=== PATIENT | female | born 1995 | race Caucasian/White ===

== ENCOUNTER 2018-07-31 14:05 | Emergency (ER) | payer BC ==
[2018-07-31] MEDS ORDERED: ONDANSETRON HCL INJ/PF 4 MG/2 ML SDV IV ONE (14:38)
[2018-07-31] MEDS ORDERED: MORPHINE SULFATE 10 MG/ML INJ IV ONE (14:40)
--- NOTE | 2018-07-31 14:40 | ER Document Report ---
ED Medical Screen (RME) - General Chief Complaint: Nausea/Vomiting Stated Complaint: VOMITTING Time Seen by Provider: 07/31/18 14:37 Mode of Arrival: Wheelchair Information source: Patient Notes: 23-year-old female presented to ED, for complaint of nausea vomiting too many times to count since 6:00 this morning she said at least 30 if not more. She has left flank and abdominal pain. She states she had a bowel movement this morning. She states she is on Symbicort for her asthma and Synthroid for her hypothyroidism. Otherwise she does not take any kind of medications. Patient is alert oriented respirations regular and unlabored with severe left flank and abdomen pain. I have greeted and performed a rapid initial assessment of this patient. A comprehensive ED assessment and evaluation of the patient, analysis of test results and completion of medical decision making process will be conducted by an additional ED providers. TRAVEL OUTSIDE OF THE [place] IN LAST 30 DAYS: No - Related Data Allergies/Adverse Reactions: ceftriaxone sodium [From Rocephin] Allergy (Severe, Verified 07/31/18 14:06) phenobarbital [Phenobarbital] Allergy (Severe, Verified 07/31/18 14:06) amoxicillin trihydrate [From Augmentin] Allergy (Verified 07/31/18 14:06) Potassium Clavulanate * [From Augmentin] Allergy (Verified 07/31/18 14:06) Past Medical History - Social History Frequency of alcohol use: None Drug Abuse: None Pulmonary Medical History: Reports: Hx Asthma Renal/ Medical History: Denies: Hx Peritoneal Dialysis Physical Exam - Vital signs Vitals: Temp Pulse Resp BP Pulse Ox 97.8 F 99 24 H 128/88 H 100 07/31/18 14:10 07/31/18 14:10 07/31/18 14:10 07/31/18 14:10 07/31/18 14:10 Course - Vital Signs Vital signs: Temp Pulse Resp BP Pulse Ox 97.8 F 99 24 H 128/88 H 100 07/31/18 14:10 07/31/18 14:10 07/31/18 14:10 07/31/18 14:10 07/31/18 14:10
[2018-07-31] MEDS: NORMAL SALINE 1000 ML 1,000 ML IV PRN ×2 (14:52→16:37)
[2018-07-31 15:09] LABS: ABSOLUTE LYMPHOCYTES (AUTO) 1.2 10^3/uL (0.5-4.7); ABSOLUTE MONOCYTES (AUTO) 0.5 10^3/uL (0.1-1.4); ABSOLUTE NEUT (AUTO) 15.4 10^3/uL (1.7-8.2); BASOPHILS % (AUTO) 0.2 % (0-2); HEMATOCRIT 46.6 % (36.0-47.0); HEMOGLOBIN 15.8 g/dL (12.0-15.5); LYMPHOCYTES % (AUTO) 6.9 % (13-45); MEAN CORPUSCULAR HEMOGLOBIN 29.2 pg (27.0-33.4); MEAN CORPUSCULAR HGB CONC 33.9 g/dL (32.0-36.0); MEAN CORPUSCULAR VOLUME 86 fl (80-97); PLATELET COUNT 316 10^3/uL (150-450); RED BLOOD COUNT 5.42 10^6/uL (3.72-5.28); RED CELL DISTRIBUTION WIDTH 13.7 % (11.5-14.0); SEGMENTED NEUTROPHILS % (AUTO) 89.9 % (42-78); TOTAL CELLS COUNTED % (AUTO) 100 %; WHITE BLOOD COUNT 17.1 10^3/uL (4.0-10.5)
[2018-07-31] MEDS ORDERED: DIPHENHYDRAMINE HCL 50 MG/ML VIAL IV ONE (15:20)
[2018-07-31] MEDS ORDERED: METOCLOPRAMIDE HCL INJ/PF 10 MG/2 ML SDV IV ONE (15:20)
[2018-07-31 15:23] LABS: ALANINE AMINOTRANSFERASE 35 U/L (9-52); ALBUMIN 4.6 g/dL (3.5-5.0); ALKALINE PHOSPHATASE 82 U/L (38-126); ANION GAP 12 (5-19); ASPARTATE AMINO TRANSFERASE 20 U/L (14-36); BILIRUBIN,DIRECT 0.3 mg/dL (0.0-0.4); BILIRUBIN,TOTAL 0.7 mg/dL (0.2-1.3); BLOOD UREA NITROGEN 10 mg/dL (7-20); CALCIUM 10.1 mg/dL (8.4-10.2); CARBON DIOXIDE 22 mmol/L (22-30); CHLORIDE 105 mmol/L (98-107); GLUCOSE 143 mg/dL (75-110); LIPASE 66.8 U/L (23-300); POTASSIUM 4.4 mmol/L (3.6-5.0); SODIUM 139.1 mmol/L (137-145); TOTAL PROTEIN 8.1 g/dL (6.3-8.2)
[2018-07-31] MEDS ORDERED: PROMETHAZINE HCL INJ 25 MG/1 ML VIAL IM ONE (16:27)
[2018-07-31 16:54] LABS: AMORPHOUS SEDIMENT,URINE TRACE /HPF; APPEARANCE,URINE SLIGHTLY-CLOUDY; BILIRUBIN,URINE NEGATIVE (NEGATIVE); COLOR,URINE YELLOW; GLUCOSE, URINE NEGATIVE (NEGATIVE); KETONES,URINE 80 mg/dL (NEGATIVE); LEUKOCYTE ESTERASE,URINE NEGATIVE (NEGATIVE); NITRITE,URINE NEGATIVE (NEGATIVE); PROTEIN,URINE NEGATIVE (NEGATIVE); URINE SPECIFIC GRAVITY 1.023; UROBILINOGEN,URINE NEGATIVE mg/dL (<2.0)
--- NOTE | 2018-07-31 17:55 | ER Document Report ---
ED General - General Chief Complaint: Nausea/Vomiting Stated Complaint: VOMITTING Time Seen by Provider: 07/31/18 14:37 Primary Care Provider: MAGDA MAXWELL MD [Primary Care Provider] - Follow up as needed Mode of Arrival: Wheelchair TRAVEL OUTSIDE OF THE [place] IN LAST 30 DAYS: No - HPI Patient complains to provider of: Nausea vomiting Notes: Patient coming in for nausea vomiting seen by a provider in triage note is prov ided below 23-year-old female presented to ED, for complaint of nausea vomiting too many times to count since 6:00 this morning she said at least 30 if not more. She has left flank and abdominal pain. She states she had a bowel movement this morning. She states she is on Symbicort for her asthma and Synthroid for her hypothyroidism. Otherwise she does not take any kind of medications. Patient is alert oriented respirations regular and unlabored with severe left flank and abdomen pain. Patient immune for evaluation nausea vomiting upon my evaluation patient is dry heaving rocking back and forth in the bed. Patient states no new foods no new new pets no recent antibiotics. Patient denies any abdominal past medical history. Patient denies any abdominal surgeries in the past. Patient states normal bowel movements morning no diarrhea denies any sick contacts. Patient otherwise looks to be in no obvious distress - Related Data Allergies/Adverse Reactions: ceftriaxone sodium [From Rocephin] Allergy (Severe, Verified 07/31/18 14:06) phenobarbital [Phenobarbital] Allergy (Severe, Verified 07/31/18 14:06) amoxicillin trihydrate [From Augmentin] Allergy (Verified 07/31/18 14:06) Potassium Clavulanate * [From Augmentin] Allergy (Verified 07/31/18 14:06) Past Medical History - General Information source: Patient - Social History Smoking Status: Never Smoker Frequency of alcohol use: None Drug Abuse: None Family History: Reviewed & Not Pertinent Patient has suicidal ideation: No Patient has homicidal ideation: No Pulmonary Medical History: Reports: Hx Asthma Renal/ Medical History: Denies: Hx Peritoneal Dialysis Review of Systems - Review of Systems Constitutional: No symptoms reported EENT: No symptoms reported Cardiovascular: No symptoms reported Respiratory: No symptoms reported Gastrointestinal: Nausea, Vomiting Genitourinary: No symptoms reported Female Genitourinary: No symptoms reported Musculoskeletal: No symptoms reported Skin: No symptoms reported Hematologic/Lymphatic: No symptoms reported Neurological/Psychological: No symptoms reported -: Yes All other systems reviewed and negative Physical Exam - Vital signs Vitals: Temp Pulse Resp BP Pulse Ox 97.8 F 99 24 H 128/88 H 100 07/31/18 14:10 07/31/18 14:10 07/31/18 14:10 07/31/18 14:10 07/31/18 14:10 Interpretation: Normal - General General appearance: Appears well, Alert - HEENT Head: Normocephalic, Atraumatic Eyes: Normal Pupils: PERRL - Respiratory Respiratory status: No respiratory distress Chest status: Nontender Breath sounds: Normal Chest palpation: Normal - Cardiovascular Rhythm: Regular Heart sounds: Normal auscultation Murmur: No - Abdominal Inspection: Morbidly Obese Distension: No distension Bowel sounds: Normal Tenderness: Nontender Organomegaly: No organomegaly - Back Back: Normal, Nontender - Extremities General upper extremity: Normal inspection, Nontender, Normal color, Normal ROM, Normal temperature General lower extremity: Normal inspection, Nontender, Normal color, Normal ROM, Normal temperature, Normal weight bearing. No: Abdirashid's sign - Neurological Neuro grossly intact: Yes Cognition: Normal Orientation: AAOx4 Maddie Coma Scale Eye Opening: Spontaneous Maddie Coma Scale Verbal: Oriented [place] Coma Scale Motor: Obeys Commands [place] Coma Scale Total: 15 Speech: Normal Motor strength normal: LUE, RUE, LLE, RLE Sensory: Normal - Psychological Associated symptoms: Normal affect, Normal mood - Skin Skin Temperature: Warm Skin Moisture: Dry Skin Color: Normal Course - Re-evaluation Re-evalutation: 07/31/18 17:56 Patient coming in for nausea vomiting patient is morbidly obese. Laboratory studies shows leukocytosis more likely demargination from the patient vomiting. Abdominal examination showed nontender no surgical pathology no guarding or rebound. Patient urinalysis does not show any critical pathology no signs of hematuria or infection. Urinalysis does show some signs of dehydration but slight ketosis. Patient was given 2 bags of IV fluids. Patient still feeling slightly nauseous after Zofran and Reglan and Benadryl and Phenergan however patient otherwise has not had any vomiting while here. Patient will be di scharged home with Zofran and Phenergan. - Vital Signs Vital signs: Temp Pulse Resp BP Pulse Ox 97.8 F 99 24 H 128/88 H 100 07/31/18 14:10 07/31/18 14:10 07/31/18 14:10 07/31/18 14:10 07/31/18 14:10 - Laboratory Result Diagrams: 07/31/18 14:50 07/31/18 14:50 Laboratory results interpreted by me: 07/31/18 07/31/18 07/31/18 14:50 14:50 16:23 WBC 17.1 H RBC 5.42 H Hgb 15.8 H Seg Neutrophils % 89.9 H Lymphocytes % 6.9 L Absolute Neutrophils 15.4 H Glucose 143 H Urine Ketones 80 H Urine Ascorbic Acid 20 H Discharge - Discharge Clinical Impression: Nausea & vomiting Qualifiers: Vomiting type: unspecified Vomiting Intractability: unspecified Qualified Code(s): R11.2 - Nausea with vomiting, unspecified Condition: Good Disposition: HOME, SELF-CARE Instructions: Nausea or Vomiting, Nonspecific ([facility]), Dehydration ([facility]) Additional Instructions: Laboratory studies do not show any critical pathology for your nausea or vomiting. More likely a viral illness. Yousymptoms are likely due to a virus. However, it is important that you continue to monitor for any concerning symptoms including inability to tolerate oral fluids, less than 2 urinations in a 24 hour period, and lethargy Please continue to offer oral solutions such as Pedialyte Gatorade. It is okay if you do not want to eat over the next several days but it is important that they continue to drink fluids. You may also provide a medication such as ibuprofen (Motrin) or acetaminophen (Tylenol) per box instructions for fever. Prescriptions: Ondansetron [Zofran Odt 4 mg Tablet] 1 - 2 tab PO Q4H PRN #30 tab.rapdis PRN Reason: For Nausea/Vomiting Promethazine HCl [Phenergan 25 mg Tablet] 25 mg PO Q6 #30 tablet Forms: Return to Work Referrals: MAGDA MAXWELL MD [Primary Care Provider] - Follow up as needed
[2018-07-31 18:24] VITALS: BP 120/86
== END 2018-07-31 18:22 | disposition home or self-care (01) ==
LOC: ER 14:05
DX: R11.2 Nausea with vomiting, unspecified (principal); R10.9 Unspecified abdominal pain; E66.01 Morbid (severe) obesity due to excess calories; J45.909 Unspecified asthma, uncomplicated; D72.829 Elevated white blood cell count, unspecified; Z79.51 Long term (current) use of inhaled steroids; E03.9 Hypothyroidism, unspecified; Z79.899 Other long term (current) drug therapy; Z88.0 Allergy status to penicillin; Z88.1 Allergy status to other antibiotic agents; Z88.8 Allergy status to other drugs, medicaments and biological substances
CPT/HCPCS: 99284; 96372; 96361; 96374; 96375; 36415; 87040; 83690; 84703; 85025; 80053; 81001; J1200; J2765; J2270; J2550; J2405; J7030

== ENCOUNTER 2018-11-22 09:36 | Emergency (ER) | payer BC ==
[2018-11-22] MEDS ORDERED: ONDANSETRON HCL INJ/PF 4 MG/2 ML SDV IV ONE ×3 (10:15→13:13)
[2018-11-22 10:19] LABS: ABSOLUTE BASOPHILS # (AUTO) 0.1 10^3/uL (0.0-0.2); ABSOLUTE EOSINOPHILS # (AUTO) 0.3 10^3/uL (0.0-0.6); ABSOLUTE LYMPHOCYTES (AUTO) 2.5 10^3/uL (0.5-4.7); ABSOLUTE MONOCYTES (AUTO) 0.7 10^3/uL (0.1-1.4); ABSOLUTE NEUT (AUTO) 9.4 10^3/uL (1.7-8.2); BASOPHILS % (AUTO) 0.7 % (0-2); HEMATOCRIT 48.1 % (36.0-47.0); LYMPHOCYTES % (AUTO) 19.6 % (13-45); MEAN CORPUSCULAR HEMOGLOBIN 28.6 pg (27.0-33.4); MEAN CORPUSCULAR HGB CONC 33.4 g/dL (32.0-36.0); MEAN CORPUSCULAR VOLUME 86 fl (80-97); MONOCYTES % (AUTO) 5.1 % (3-13); PLATELET COUNT 307 10^3/uL (150-450); RED BLOOD COUNT 5.61 10^6/uL (3.72-5.28); RED CELL DISTRIBUTION WIDTH 13.6 % (11.5-14.0); SEGMENTED NEUTROPHILS % (AUTO) 72.6 % (42-78); TOTAL CELLS COUNTED % (AUTO) 100 %; WHITE BLOOD COUNT 12.9 10^3/uL (4.0-10.5)
[2018-11-22] MEDS ORDERED: KETOROLAC TROMETHAMINE INJ/PF 30 MG/1 ML SDV IV ONE (10:33)
[2018-11-22 10:37] LABS: ALBUMIN 4.5 g/dL (3.5-5.0); ALKALINE PHOSPHATASE 82 U/L (38-126); ANION GAP 11 (5-19); ASPARTATE AMINO TRANSFERASE 22 U/L (14-36); BILIRUBIN,DIRECT 0.3 mg/dL (0.0-0.4); BILIRUBIN,TOTAL 0.7 mg/dL (0.2-1.3); BLOOD UREA NITROGEN 7 mg/dL (7-20); CARBON DIOXIDE 22 mmol/L (22-30); CHLORIDE 107 mmol/L (98-107); GLUCOSE 128 mg/dL (75-110); POTASSIUM 4.1 mmol/L (3.6-5.0); TOTAL PROTEIN 7.6 g/dL (6.3-8.2)
--- NOTE | 2018-11-22 10:39 | ER Document Report ---
ED GI/ - General Chief Complaint: Vomiting Stated Complaint: VOMITING, RIGHT SIDE PAIN Time Seen by Provider: 11/22/18 10:32 Primary Care Provider: MAGDA MAXWELL MD [Primary Care Provider] - Follow up as needed Notes: Patient is complaining of severe pain in the mid epigastric region of her stomach that started yesterday. She has had nausea since yesterday and is vomited over 20 times. Pain is located almost exclusively in the epigastric region. No back pain. Has not noted any fever. Denies any UTI symptoms. No diarrhea. Patient has not had any abdominal surgeries. Last. Is "a while" because the patient is on the Mirena implant for control. Patient has had similar pains in presentations like this several times in the past and has been seen by a doctor occasionally who told her that she had "stomach flu". TRAVEL OUTSIDE OF THE [place] IN LAST 30 DAYS: No - Related Data Allergies/Adverse Reactions: ceftriaxone sodium [From Rocephin] Allergy (Severe, Verified 07/31/18 14:06) phenobarbital [Phenobarbital] Allergy (Severe, Verified 07/31/18 14:06) amoxicillin trihydrate [From Augmentin] Allergy (Verified 07/31/18 14:06) Potassium Clavulanate * [From Augmentin] Allergy (Verified 07/31/18 14:06) Past Medical History - Social History Smoking Status: Unknown if Ever Smoked Family History: Reviewed & Not Pertinent Pulmonary Medical History: Reports: Hx Asthma Endocrine Medical History: Reports: Hx Hypothyroidism Review of Systems - Review of Systems Notes: REVIEW OF SYSTEMS: CONSTITUTIONAL : Denies fever. EENT: Denies eye, ear, nose or mouth or throat pain or other symptoms. CARDIOVASCULAR: Denies chest pain. RESPIRATORY: Denies cough, chest congestion, or shortness of breath. GASTROINTESTINAL: See HPI. GENITOURINARY: Denies difficulty or painful urinating, urinary frequency, blood in urine. MUSCULOSKELETAL: Denies back or neck pain. Denies joint pain or swelling. SKIN: Denies rash or skin lesions. NEUROLOGICAL: Denies LOC or altered mental status. Denies headache. Denies sensory loss or motor deficits. ALL OTHER SYSTEMS REVIEWED AND NEGATIVE. Physical Exam - Vital signs Vitals: Temp Pulse Resp BP Pulse Ox 97.1 F 91 24 H 121/83 96 11/22/18 09:42 11/22/18 09:42 11/22/18 09:42 11/22/18 09:42 11/22/18 09:42 Interpretation: Normal Notes: PHYSICAL EXAMINATION: GENERAL: Patient appears to be in moderate distress, rolling around on the stretcher. HEAD: Atraumatic, normocephalic. EYES: Pupils equal round and reactive to light, extraocular movements intact. ENT: oropharynx clear without exudates. Moist mucous membranes. NECK: Normal range of motion, supple. LUNGS: Breath sounds clear and equal bilaterally. HEART: Regular rate and rhythm without murmurs. ABDOMEN: See HPI. BACK: No tenderness throughout entire back. EXTREMITIES: Normal range of motion without pain. NEUROLOGICAL: Normal speech, normal gait. Normal sensory, motor, and reflex exams. Awake, alert, and oriented x3. Cranial nerves normal. PSYCH: Normal mood, normal affect. SKIN: Warm, dry, no rashes. Course - Re-evaluation Re-evalutation: 11/22/18 11:03 Patient says her pain is gone, but still nauseated. We will give some Reglan IV. 11/22/18 15:40 Patient is finally gotten better. She says she does not have any nausea or vomiting or pain at this time. She is had several doses of Zofran along with Toradol followed by Dilaudid IV for pain. Patient says she feels up to going home now. We will send her home with a prescription for Zofran as well as a prescription for a few (6) Dilaudid. I did asked the patient if she smokes marijuana and she says that she does. I described to her the cyclical hyperemesis that has recently started to be ident ified with marijuana smoking and suggested she may want to reconsider smoking pot. - Vital Signs Vital signs: Temp Pulse Resp BP Pulse Ox 98.3 F 74 16 114/71 100 11/22/18 13:20 11/22/18 13:20 11/22/18 15:06 11/22/18 13:20 11/22/18 13:20 - Laboratory Result Diagrams: 11/22/18 10:10 11/22/18 10:10 Laboratory results interpreted by me: 11/22/18 11/22/18 11/22/18 10:10 10:10 13:08 WBC 12.9 H RBC 5.61 H Hgb 16.0 H Hct 48.1 H Absolute Neutrophils 9.4 H Glucose 128 H Urine Protein 100 H Urine Ketones 80 H Discharge - Discharge Clinical Impression: Vomiting, Abdominal pain Condition: Stable Disposition: HOME, SELF-CARE Additional Instructions: VOMITING: Vomiting (or nausea without vomiting) can be caused by many other different problems. It can mean that something's wrong with the stomach, such as ulcers or inflammation or the intestinal tract, such as appendicitis. But it can also be a symptom of a problem that has nothing to do with the stomach or intestines. Vomiting is common with severe headaches, earaches, tonsillitis, and kidney infections, etc. We see it with pneumonia or heart attacks. Drugs can cause nausea and vomiting. Many abdominal problems cause vomiting; for example, gallstones, kidney stones, pancreatitis, and intestinal obstruction (blocked bowels). In most cases, curing the vomiting depends on fixing the problem that cause d it. For temporary relief, we may use an anti-nausea medicine. For home use, we can prescribe suppositories, chewable pills, pills that dissolve in the mouth, or liquid anti-nausea drugs. If the vomiting seems to be caused by a problem in the stomach, acid-suppressing drugs may be prescribed as well. It's important to avoid dehydration. Sip small amounts of clear liquids (soft drinks, tea, broth, etc) . Try to take fluids frequently even if you are vomiting to prevent dehydration. Take increasing amounts of fluid and when liquids are being consumed successfully, advance to small amounts of bland food (toast, soups, mashed potatoes, etc.) until you are able to resume a regular diet. Avoid aspirin, tobacco, and alcohol. If the vomiting worsens, if the problem that's making you vomit worsens, or if there's evidence of bleeding in the stomach (such as black, tarry stool, or bloody or black vomit), you should return immediately. Also, return if abdominal pain worsens or becomes localized to one area or you develop high fever. Call your doctor if you aren't improved in 24 hours. VIRAL SYNDROME: The physician has diagnosed a viral infection. Viruses not only cause "co lds," but can cause many different symptoms including generalized aching, fever, headache, cough, diarrhea, nausea, vomiting, and fatigue. The treatment, for the most part, is simply relief of symptoms. This means that antibiotics are usually not given. Rest, fluids, pain medications and, occasionally, medication for the specific symptoms that are most bothersome will be prescribed. Use good handwashing to avoid passing the virus to others. Shared toys should be cleaned with disinfectant. Clean the toilets, sinks, and counter surfaces in bathrooms. Launder clothing in hot water. Contact the physician if you develop any new or unusual symptoms such as severe headache, stiff neck, high fever, chest pain, productive cough, or shortness of breath. You should be rechecked if you don't see marked improvement within seven to 10 days. INTRAVENOUS (I V) FLUIDS: As part of your care today, you received intravenous (IV) fluids. IV fluids are administered to patients who are dehydrated or to those who have certain chemical (electrolyte) abnormalities that need correcting. ANTINAUSEA MEDICATION: You have been given a medication to suppress nausea and vomiting. This type of medication can be given as a shot, pill, or suppository. It will usually last for many hours. Pills and shots usually last six to eight hours. For the typical illness, only one or two doses of the medication may be necessary. Mild lightheadedness may occur. This type of medicine can cause drowsiness. Do not drive or operate dangerous machinery while under its influence. Do not mix with alcohol. See your doctor at once if you have muscle spasms or tightness, or uncontrollable motions (particularly of the neck, mouth, or jaw). Persistent vomiting or severe lightheadedness should also be evaluated by the physician. REGLAN (METOCLOPRAMIDE): Reglan has been prescribed. This medicine affects the stomach and intestines. It can be used to treat nausea and vomiting, to prevent reflux of stomach acid up into the esophagus, or to increase the contractions of the stomach and intestines. It is often prescribed for esophagitis, and for paralysis of the stomach in diabetics. Reglan can cause either mild restlessness or drowsiness. You should contact the doctor at once if you become extremely restless, anxious, or cannot sleep, or if you develop uncontrollable motions of the lips, tongue, or jaw. Do not take alcohol with this medicine. Do not drive or operate machinery until you have been taking this medicine long enough to know how it affects you. Call the doctor if you develop abdominal pains, lightheadedness, black stool, or blood in the stool or vomitus. Oral Narcotic Medication You have been given a prescription for pain control. This medication is a narcotic. It's best taken with food, as nausea can result if taken on an empty stomach. Don't operate machinery or drive within six hours of taking this medicat ion. Do not combine this medicine with alcohol, or with any medication which can cause sedation (such as cold tablets or sleeping pills) unless you get permission from the physician. Narcotics tend to cause constipation. If possible, drink plenty of fluids and eat a diet high in fiber and fruits. FOLLOW-UP CARE: If you have been referred to a physician for follow-up care, call the physicians office for an appointment as you were instructed or within the next two days. If you experience worsening or a significant change in your symptoms, notify the physician immediately or return to the Emergency Department at any time for re-evaluation. A type of vomiting called cyclical vomiting or cyclical hyperemesis has been identified that is associated with people smoking marijuana. He might want to check it out and reconsider smoking pot in the future. Prescriptions: Hydromorphone HCl [Dilaudid 2 mg Tablet] 2 mg PO Q4HP PRN #6 tablet PRN Reason: Ondansetron [Zofran Odt 4 mg Tablet] 1 - 2 tab PO Q4H PRN #10 tab.rapdis PRN Reason: For Nausea/Vomiting Forms: Return to Work Referrals: MAGDA MAXWELL MD [Primary Care Provider] - Follow up as needed
[2018-11-22] MEDS ORDERED: METOCLOPRAMIDE HCL INJ/PF 10 MG/2 ML SDV IV ONE (11:01)
[2018-11-22] MEDS: NORMAL SALINE 1000 ML 1,000 ML IV PRN ×2 (11:42→13:15)
--- NOTE | 2018-11-22 12:29 | RADIOLOGY REPORT (SQ) ---
EXAM DESCRIPTION: U/S ABDOMEN LIMITED W/O DOP COMPLETED DATE/TIME: 11/22/2018 12:17 pm REASON FOR STUDY: RUQ and mid epigastric pain, vomit. r/o GB COMPARISON: None. TECHNIQUE: Dynamic and static grayscale images acquired of the abdomen and recorded on PACS. Additio nal selected color Doppler and spectral images recorded. LIMITATIONS: None. FINDINGS: PANCREAS: No masses. Visualized pancreatic duct normal caliber. LIVER: No masses. Echotexture normal. LIVER VASCULATURE: Normal directional flow of the main portal vein and hepatic veins. GALLBLADDER: No stones. Normal wall thickness. No pericholecystic fluid. ULTRASOUND-DETECTED GALVAN'S SIGN: Negative. INTRAHEPATIC DUCTS AND COMMON DUCT: CBD and intrahepatic ducts normal caliber. No filling defects. INFERIOR VENA CAVA: Normal flow. AORTA: No aneurysm identified. RIGHT KIDNEY: Normal size. Normal echogenicity. No solid or suspicious masses. No hydronephros is. No calcifications. PERITONEAL AND RIGHT PLEURAL SPACE: No ascites or effusions. OTHER: No other significant findings. IMPRESSION: NO ACUTE FINDINGS. TECHNICAL DOCUMENTATION: JOB ID: [id number] [place]-72 2010 [employer]- All Rights Reserved Reading location - IP/workstation name: [employer] (formerly [employer])
[2018-11-22] MEDS ORDERED: HYDROMORPHONE HCL INJ/PF 2 MG/ML AMPULE IV ONE (13:11)
[2018-11-22 13:27] LABS: APPEARANCE,URINE CLOUDY; BILIRUBIN,URINE NEGATIVE (NEGATIVE); COLOR,URINE AMBER; GLUCOSE, URINE NEGATIVE (NEGATIVE); KETONES,URINE 80 mg/dL (NEGATIVE); LEUKOCYTE ESTERASE,URINE NEGATIVE (NEGATIVE); NITRITE,URINE NEGATIVE (NEGATIVE); PROTEIN,URINE 100 mg/dL (NEGATIVE); URINE SPECIFIC GRAVITY 1.026; UROBILINOGEN,URINE NEGATIVE mg/dL (<2.0)
--- NOTE | 2018-11-22 14:10 | RADIOLOGY REPORT (SQ) ---
EXAM DESCRIPTION: CT ABD/PELVIS WITH IV ONLY COMPLETED DATE/TIME: 11/22/2018 1:58 pm REASON FOR STUDY: Epigastric abdominal pain, negative ultrasound gb COMPARISON: None. TECHNIQUE: CT scan of the abdomen and pelvis performed using helical scanning technique with dynamic intravenous contrast injection. No oral contrast. Images reviewed with lung, soft tissue, and bone windows. Reconstructed coronal and sagittal MPR images reviewed. Delayed images for evaluation of the urinary system also acquired. All images stored on PACS. All CT scanners at this facility use dose modulation, iterative reconstruction, and/or weight based d osing when appropriate to reduce radiation dose to as low as reasonably achievable (ALARA). [facility]: Dose Right [facility]: CareDose [facility]: Dose Right [facility]: Teradose 4D [facility]: [employer] CONTRAST TYPE AND DOSE: contrast/concentration: Isovue 350.00 mg/ml; Total Contrast Delivered: 100.0 ml; Total Saline Delivered: 72.0 ml RENAL FUNCTION: None required. The patient is less than 50 years old. RADIATION DOSE: CT Rad equipment meets quality standard of care and radiation dose reduction techniq ues were employed. CTDIvol: 20.8 - 21.1 mGy. DLP: 2386 mGy-cm.. LIMITATIONS: None. FINDINGS: LOWER CHEST: No significant findings. No nodules or infiltrates. LIVER: Normal size. No masses. No dilated ducts. SPLEEN: Normal size. No focal lesions. PANCREAS: No masses. No significant calcifications. No adjacent inflammation or peripancreatic fluid collections. Pancreatic duct not dilated. GALLBLADDER: No identified stones by CT criteria. No inflammatory changes to suggest cholecystitis. ADRENAL GLANDS: No significant masses or asymmetry. RIGHT KIDNEY AND URETER: No solid masses. No significant calcifications. No hydronephrosis or hyd roureter. LEFT KIDNEY AND URETER: No solid masses. No significant calcifications. No hydronephrosis or hydr oureter. AORTA AND VESSELS: No aneurysm. No dissection. Renal arteries, SMA, celiac without stenosis. RETROPERITONEUM: No retroperitoneal adenopathy, hemorrhage or masses. BOWEL AND PERITONEAL CAVITY: No masses or inflammatory changes. No free fluid or peritoneal masses. APPENDIX: Normal. PELVIS: 3 cm right ovarian cysts. IUD in place. Bladder unremarkable. ABDOMINAL WALL: No masses. No hernias. BONES: No significant or acute findings. OTHER: No other significant finding. IMPRESSION: NO SIGNIFICANT OR ACUTE FINDING IN THE ABDOMEN OR PELVIS ON CT SCAN WITH IV CONTRAST. 3 cm right ovarian cysts. COMMENT: Followup of asymptomatic adnexal cysts found on CT or MRI in reproductive age patients *Benign cyst ?5 cm: No followup needed *Note: If cyst is clinically symptomatic or otherwise concerning, other followup may be necessary. Darvin sed on Managing Incidental Findings on Abdominal and Pelvic CT and MRI, Part 1: White Paper of the AC R Incidental Findings Committee II on Adnexal Findings J Am Sabine Radiol 2013;10:675-681. TECHNICAL DOCUMENTATION: JOB ID: [id number] Quality ID # [id number]: Final reports with documentation of one or more dose reduction techniques (e.g., Au tomated exposure control, adjustment of the mA and/or kV according to patient size, use of iterative reconstruction technique) 2010 [employer]- All Rights Reserved Reading location - IP/workstation name: [email or web address]
[2018-11-22 16:09] VITALS: BP 100/57
== END 2018-11-22 16:17 | disposition home or self-care (01) ==
LOC: ER 09:36
DX: R11.2 Nausea with vomiting, unspecified (principal); R10.13 Epigastric pain; J45.909 Unspecified asthma, uncomplicated; Z97.5 Presence of (intrauterine) contraceptive device; Z88.1 Allergy status to other antibiotic agents; Z88.8 Allergy status to other drugs, medicaments and biological substances; Z88.0 Allergy status to penicillin
CPT/HCPCS: 96376; 99284; 96361; 96374; 96375; 36415; 83690; 84703; 85025; 80053; 81001; 76705; 74177; J1885; J2765; J1170; J2405; J7030

== ENCOUNTER 2018-11-28 12:46 | Emergency (ER) | payer BC ==
[2018-11-28 12:53] VITALS: BP 141/93
[2018-11-28] MEDS ORDERED: ONDANSETRON HCL INJ/PF 4 MG/2 ML SDV IV ONE (12:57)
[2018-11-28] MEDS ORDERED: NORMAL SALINE 1000 ML 1,000 ML IV ONE (12:58)
--- NOTE | 2018-11-28 12:59 | ER Document Report ---
ED Medical Screen (RME) - General Chief Complaint: Abdominal Pain Stated Complaint: VOMITING Time Seen by Provider: 11/28/18 12:53 Primary Care Provider: MAGDA MAXWELL MD [Primary Care Provider] - Follow up as needed Mode of Arrival: Ambulatory Information source: Patient Notes: Patient is an otherwise healthy 23-year-old female presents emergency department chief complaint of left upper quadrant abdominal pain and vomiting. Patient reports these symptoms started last night and have persisted through the night. She denies any fevers or diarrhea. She does report that this has been going on intermittently over the last month. She states she has been seen in this emergency room as well as another emergency department and has never had a formal diagnosis. She does report smoking marijuana but states she only smokes it a few times a week. Exam: Patient actively vomiting in triage. Tenderness to palpation the left upper quadrant. I have greeted and performed a rapid initial assessment of this patient. A comprehensive ED assessment and evaluation of the patient, analysis of test results and completion of the medical decision making process will be conducted by additional ED providers. I have specifically instructed the patient or family members with the patient to immediately return to any nursing staff should anything change in the patient's condition or with their chief complaint. This medical record was dictated with voice recognizing software. There may be grammatical, syntax errors that are unintended. TRAVEL OUTSIDE OF THE [place] IN LAST 30 DAYS: No - Related Data Allergies/Adverse Reactions: ceftriaxone sodium [From Rocephin] Allergy (Severe, Verified 11/28/18 12:46) phenobarbital [Phenobarbital] Allergy (Severe, Verified 11/28/18 12:46) amoxicillin trihydrate [From Augmentin] Allergy (Verified 11/28/18 12:46) Potassium Clavulanate * [From Augmentin] Allergy (Verified 11/28/18 12:46) Past Medical History - Social History Frequency of alcohol use: None Drug Abuse: Marijuana Pulmonary Medical History: Reports: Hx Asthma Endocrine Medical History: Reports: Hx Hypothyroidism Renal/ Medical History: Denies: Hx Peritoneal Dialysis Physical Exam - Vital signs Vitals: Temp Pulse Resp BP Pulse Ox 98.3 F 86 20 141/93 H 100 11/28/18 12:52 11/28/18 12:52 11/28/18 12:52 11/28/18 12:52 11/28/18 12:52 Course - Vital Signs Vital signs: Temp Pulse Resp BP Pulse Ox 98.3 F 86 20 141/93 H 100 11/28/18 12:52 11/28/18 12:52 11/28/18 12:52 11/28/18 12:52 11/28/18 12:52 Doctor's Discharge - Discharge Referrals: MAGDA MAXWELL MD [Primary Care Provider] - Follow up as needed
[2018-11-28 13:33] LABS: ABSOLUTE BASOPHILS # (AUTO) 0.1 10^3/uL (0.0-0.2); ABSOLUTE LYMPHOCYTES (AUTO) 1.3 10^3/uL (0.5-4.7); ABSOLUTE MONOCYTES (AUTO) 0.4 10^3/uL (0.1-1.4); ABSOLUTE NEUT (AUTO) 11.2 10^3/uL (1.7-8.2); BASOPHILS % (AUTO) 0.4 % (0-2); EOSINOPHILS % (AUTO) 0.3 % (0-6); HEMOGLOBIN 15.7 g/dL (12.0-15.5); LYMPHOCYTES % (AUTO) 9.9 % (13-45); MEAN CORPUSCULAR HEMOGLOBIN 29.1 pg (27.0-33.4); MEAN CORPUSCULAR HGB CONC 33.4 g/dL (32.0-36.0); MEAN CORPUSCULAR VOLUME 87 fl (80-97); MONOCYTES % (AUTO) 2.8 % (3-13); PLATELET COUNT 306 10^3/uL (150-450); RED CELL DISTRIBUTION WIDTH 13.8 % (11.5-14.0); SEGMENTED NEUTROPHILS % (AUTO) 86.6 % (42-78); TOTAL CELLS COUNTED % (AUTO) 100 %; WHITE BLOOD COUNT 12.9 10^3/uL (4.0-10.5)
[2018-11-28 13:37] LABS: ALBUMIN 4.6 g/dL (3.5-5.0); ALKALINE PHOSPHATASE 75 U/L (38-126); ANION GAP 10 (5-19); ASPARTATE AMINO TRANSFERASE 37 U/L (14-36); BILIRUBIN,DIRECT 0.2 mg/dL (0.0-0.4); BILIRUBIN,TOTAL 0.4 mg/dL (0.2-1.3); BLOOD UREA NITROGEN 6 mg/dL (7-20); CALCIUM 9.7 mg/dL (8.4-10.2); CARBON DIOXIDE 26 mmol/L (22-30); CHLORIDE 104 mmol/L (98-107); GLUCOSE 119 mg/dL (75-110); POTASSIUM 4.1 mmol/L (3.6-5.0); TOTAL PROTEIN 7.6 g/dL (6.3-8.2)
[2018-11-28 14:43] LABS: APPEARANCE,URINE CLEAR; BILIRUBIN,URINE NEGATIVE (NEGATIVE); COLOR,URINE YELLOW; GLUCOSE, URINE NEGATIVE (NEGATIVE); KETONES,URINE 20 mg/dL (NEGATIVE); LEUKOCYTE ESTERASE,URINE NEGATIVE (NEGATIVE); NITRITE,URINE NEGATIVE (NEGATIVE); PROTEIN,URINE NEGATIVE (NEGATIVE); URINE SPECIFIC GRAVITY 1.017; UROBILINOGEN,URINE NEGATIVE mg/dL (<2.0)
[2018-11-28] MEDS ORDERED: HALOPERIDOL LACTATE INJ 5 MG/1 ML VIAL IV ONE ×2 (14:48→17:15)
[2018-11-28] MEDS ORDERED: METOCLOPRAMIDE HCL INJ/PF 10 MG/2 ML SDV IV ONE (15:48)
--- NOTE | 2018-11-28 20:25 | ER Document Report ---
Entered by LEDA BLAIR SCRIBE 11/28/18 1556 Acting as scribe for:LYNN GALE DO ED GI/ - General Chief Complaint: Abdominal Pain Stated Complaint: VOMITING Time Seen by Provider: 11/28/18 12:53 Primary Care Provider: MAGDA MAXWELL MD [Primary Care Provider] - Follow up in 3-5 days Mode of Arrival: Ambulatory Information source: Patient Notes: 23 year old female that presents to the emergency department today with complaints of vomiting with some associated mild abdominal cramping over the last day. Patient admits to smoking marijuana. Patient told the triage nurse that she was just discharged [facility] ED "without a diagnosis". TRAVEL OUTSIDE OF THE [place] IN LAST 30 DAYS: No - Related Data Allergies/Adverse Reactions: ceftriaxone sodium [From Rocephin] Allergy (Severe, Verified 11/28/18 12:46) phenobarbital [Phenobarbital] Allergy (Severe, Verified 11/28/18 12:46) amoxicillin trihydrate [From Augmentin] Allergy (Verified 11/28/18 12:46) Potassium Clavulanate * [From Augmentin] Allergy (Verified 11/28/18 12:46) Past Medical History - General Information source: Patient - Social History Smoking Status: Current Every Day Smoker Cigarette use (# per day): Yes Frequency of alcohol use: None Drug Abuse: Marijuana Lives with: Family Family History: Reviewed & Not Pertinent Patient has suicidal ideation: No Patient has homicidal ideation: No Pulmonary Medical History: Reports: Hx Asthma Endocrine Medical History: Reports: Hx Hypothyroidism Review of Systems - Review of Systems Constitutional: No symptoms reported EENT: No symptoms reported Cardiovascular: No symptoms reported Respiratory: No symptoms reported Gastrointestinal: See HPI, Abdominal pain, Vomiting Genitourinary: No symptoms reported Female Genitourinary: No symptoms reported Musculoskeletal: No symptoms reported Skin: No symptoms reported Hematologic/Lymphatic: No symptoms reported Neurological/Psychological: No symptoms reported -: Yes All other systems reviewed and negative Physical Exam - Vital signs Vitals: Temp Pulse Resp BP Pulse Ox 98.3 F 86 20 141/93 H 100 11/28/18 12:52 11/28/18 12:52 11/28/18 12:52 11/28/18 12:52 11/28/18 12:52 - Notes Notes: Physical Exam: General: Alert, uncomfortable. Obese. HEENT: Normocephalic. Atraumatic. PERRL. Extraocular movements intact. Oropharynx clear. Dry mucous membranes. Neck: Supple. Non-tender. Respiratory: No respiratory distress. Clear and equal breath sounds bilaterally. Cardiovascular: Regular rate and rhythm. Abdominal: Obese. Non-tender. No distension. Normal Bowel Sounds. Back: Non-tender. No deformity or step off. Extremities: Moves all four extremities. Upper extremities: Normal inspection. Normal ROM. Lower extremities: Normal inspection. No edema. Normal ROM. Neurological: Normal cognition. AAOx4. Normal speech. Psychological: Normal affect. Normal Mood. Skin: Warm. Dry. Normal color.- Course - Re-evaluation Re-evalutation: 11/28/18 17:22 Reports nausea somewhat improved, requesting more haldol. 11/28/18 20:00 Patient is taking p.o. with no further nausea or vomiting. No abdominal pain. Patient is a 23-year-old female who comes in complaining of nausea vomiting. She has been seen for this in the past. Patient with nonspecific abdominal pain. Given Zofran without relief. Haldol given with relief. Reglan given for continued nausea but patient is requesting more Haldol. 2 more milligrams of Haldol given with complete resolution of symptoms. Patient is feeling better, taking p.o. She does not admit to marijuana to me but did to the nursing staff. Patient presentation is concerning for cyclic vomiting. Blood work within normal limits. Stable for discharge. Return if any further concerns or symptoms. - Vital Signs Vital signs: Temp Pulse Resp BP Pulse Ox 98.3 F 86 20 141/93 H 100 11/28/18 12:52 11/28/18 12:52 11/28/18 12:52 11/28/18 12:52 11/28/18 12:52 - Laboratory Result Diagrams: 11/28/18 13:03 11/28/18 13:03 Laboratory results interpreted by me: 11/28/18 11/28/18 11/28/18 13:03 13:03 14:18 WBC 12.9 H RBC 5.40 H Hgb 15.7 H Seg Neutrophils % 86.6 H Lymphocytes % 9.9 L Monocytes % 2.8 L Absolute Neutrophils 11.2 H BUN 6 L Glucose 119 H AST 37 H Urine Ketones 20 H Discharge - Discharge Clinical Impression: Vomiting Qualifiers: Vomiting type: unspecified Vomiting Intractability: non-intractable Nausea presence: with nausea Qualified Code(s): R11.2 - Nausea with vomiting, unspecified Condition: Stable Disposition: HOME, SELF-CARE Instructions: Vomiting ([facility]) Prescriptions: Promethazine HCl [Phenergan 25 mg Tablet] 1 - 2 tab PO Q6H PRN #15 tablet PRN Reason: Forms: Return to Work Referrals: MAGDA MAXWELL MD [Primary Care Provider] - Follow up in 3-5 days Scribe Attestation: 11/28/18 20:25 I personally performed the services described in the documentation, reviewed and edited the documentation which was dictated to the scribe in my presence, and it accurately records my words and actions. I personally performed the services described in the documentation, reviewed and edited the documentation which was dictated to the scribe in my presence, and it accurately records my words and actions.
== END 2018-11-28 19:00 | disposition home or self-care (01) ==
LOC: ER 12:46
DX: R11.2 Nausea with vomiting, unspecified (principal); F12.10 Cannabis abuse, uncomplicated; F17.210 Nicotine dependence, cigarettes, uncomplicated; R10.9 Unspecified abdominal pain; E66.9 Obesity, unspecified; J45.909 Unspecified asthma, uncomplicated; Z88.1 Allergy status to other antibiotic agents; Z88.0 Allergy status to penicillin; Z88.8 Allergy status to other drugs, medicaments and biological substances
CPT/HCPCS: 96376; 99284; 96361; 96374; 96375; 36415; 83690; 85025; 81025; 80053; 81001; J1630; J2765; J2405; J7030

== ENCOUNTER 2018-12-08 10:59 | Day surgery (SDC) | payer BC ==
[~2018-12-08 10:59] MED LIST: LIDOCAINE 2% INJ-PF (100 MG/5 ML) SYRINGE ONE; PROPOFOL INJ 200 MG/20 ML VIAL IV ONE
--- NOTE | 2018-12-08 13:53 | Operative Report ---
Operative Report DATE OF SURGERY: 12/08/18 Operative Report: The risks benefits and alternatives of the procedure explained to the patient in detail and informed consent is obtained.A GIF Olympus video scope was inserted into the patient's mouth and hypopharynx, the esophagus is identified intubated and insufflated, the scope was then advanced through the esophagus stomach and duodenum, retroflexion maneuver is done, the esophagus stomach and first and second portions of the duodenum examined. PREOPERATIVE DIAGNOSIS: Epigastric pain rule out peptic ulcer disease POSTOPERATIVE DIAGNOSIS: Gastritis status post biopsy rule out Helicobacter pylori. Esophagitis status post biopsy rule out Kay's esophagus OPERATION: EGD with biopsy SURGEON: ABRAM LOZANO ANESTHESIA: LMAC TISSUE REMOVED OR ALTERED: As noted above. COMPLICATIONS: None. ESTIMATED BLOOD LOSS: None. INTRAOPERATIVE FINDINGS: As noted above. PROCEDURE: Patient tolerated the procedure well. No immediate postprocedure complications are noted. Patient is discharged in good condition. Discharge date 12/08/2018. Discharge diet: Regular. Discharge activity: Regular. 2 to 3-week follow-up to discuss findings. Patient is instructed to call the office or proceed to the emergency room should there be any further problems or questions. Wait on the pathology.
[2018-12-08] MEDS ORDERED: PROPOFOL INJ 200 MG/20 ML VIAL IV ONE (13:54)
[2018-12-08 14:46] VITALS: BP 103/65
== END 2018-12-08 14:50 | disposition home or self-care (01) ==
LOC: OROUT 10:59
PROVIDERS: ATTEND Internal Medicine Gastroenterology
DX: K29.50 Unspecified chronic gastritis without bleeding (principal); K20.9 Esophagitis, unspecified; E03.9 Hypothyroidism, unspecified; J45.909 Unspecified asthma, uncomplicated; Z87.891 Personal history of nicotine dependence; Z79.51 Long term (current) use of inhaled steroids; Z79.899 Other long term (current) drug therapy
CPT/HCPCS: 81025; 88305 ×2; J2704; 43239; J2001

== ENCOUNTER 2018-12-17 12:04 | Emergency (ER) | payer BC ==
[2018-12-17] MEDS ORDERED: NORMAL SALINE 1000 ML 1,000 ML IV ONE ×2 (12:19→13:41)
[2018-12-17] MEDS ORDERED: PROMETHAZINE HCL 25 MG SUPP.RECT PR ONE (12:19)
--- NOTE | 2018-12-17 12:22 | ER Document Report ---
ED Medical Screen (RME) - General Chief Complaint: Abdominal Pain Stated Complaint: ABDOMINAL PAIN Time Seen by Provider: 12/17/18 12:19 Primary Care Provider: MARGARITA BROWN MD [Primary Care Provider] - Follow up as needed Mode of Arrival: Ambulatory Information source: Patient Notes: 23-year-old female presented to ED for complaint of left upper abdominal pain. She states that she has had a CAT scan and ultrasound recently and both were negative. She states she does not know why she is having this pain she has had for months they comes and goes. She states she is been had nausea and vomiting. She states Zofran does not help her nausea and she had Compazine already today with no results. She states she needs Phenergan injection. I have ordered her some Phenergan suppository as I do not give injections this is black boxed. Patient was also ordered IV fluids. Patient is moaning and groaning in pain states that it is been going on for months. I have greeted and performed a rapid initial assessment of this patient. A comprehensive ED assessment and evaluation of the patient, analysis of test results and completion of medical decision making process will be conducted by an additional ED providers. TRAVEL OUTSIDE OF THE [place] IN LAST 30 DAYS: No - Related Data Allergies/Adverse Reactions: phenobarbital [Phenobarbital] Allergy (Severe, Verified 12/17/18 12:07) INDUCED A SEIZURE amoxicillin trihydrate [From Augmentin] Allergy (Unknown, Verified 12/17/18 12:07) ceftriaxone sodium [From Rocephin] Allergy (Unknown, Verified 12/17/18 12:07) Potassium Clavulanate * [From Augmentin] Allergy (Unknown, Verified 12/17/18 12:07) Past Medical History - Past Medical History Cardiac Medical History: Denies: Hx Coronary Artery Disease, Hx Heart Attack, Hx Hypertension Pulmonary Medical History: Reports: Hx Asthma Denies: Hx Bronchitis, Hx COPD, Hx Pneumonia Neurological Medical History: Reports: Hx Seizures - A CHILD. Denies: Hx Cerebrovascular Accident Endocrine Medical History: Reports: Hx Hypothyroidism Renal/ Medical History: Denies: Hx Peritoneal Dialysis Musculoskeltal Medical History: Denies Hx Arthritis - Immunizations Hx Diphtheria, Pertussis, Tetanus Vaccination: Yes Physical Exam - Vital signs Vitals: Temp Pulse Resp BP Pulse Ox 97.5 F 88 24 H 141/72 H 97 12/17/18 12:05 12/17/18 12:05 12/17/18 12:05 12/17/18 12:05 12/17/18 12:05 Course - Vital Signs Vital signs: Temp Pulse Resp BP Pulse Ox 97.5 F 88 24 H 141/72 H 97 12/17/18 12:05 12/17/18 12:05 12/17/18 12:05 12/17/18 12:05 12/17/18 12:05 Doctor's Discharge - Discharge Referrals: MARGARITA BROWN MD [Primary Care Provider] - Follow up as needed
[2018-12-17] MEDS ORDERED: DIPHENHYDRAMINE HCL 50 MG/ML VIAL IV ONE ×2 (12:41→16:48)
[2018-12-17] MEDS ORDERED: METOCLOPRAMIDE HCL INJ/PF 10 MG/2 ML SDV IV ONE (12:41)
[2018-12-17] MEDS ORDERED: HALOPERIDOL LACTATE INJ 5 MG/1 ML VIAL IV ONE ×3 (12:41→16:49)
--- NOTE | 2018-12-17 12:50 | ER Document Report ---
ED GI/ - General Chief Complaint: Abdominal Pain Stated Complaint: ABDOMINAL PAIN Time Seen by Provider: 12/17/18 12:19 Primary Care Provider: MARGARITA BROWN MD [Primary Care Provider] - Follow up as needed Mode of Arrival: Ambulatory Information source: Patient, [facility] Records Notes: This 23-year-old female patient comes emergency room complaining of severe abd ominal pain nausea vomiting. This is a chronic problem for this person. She is a chronic abuser of marijuana, and has been told in the past she most likely has cyclic vomiting. She tells me that Dr. Chahal told her that was not the problem, it was her gastritis based on endoscopy done 9 days ago. Review of the pathology report from that visit showed "chronic inactive gastritis". She has never tried getting in a hot shower to see if it would help her symptoms. She was seen in the emergency room 19 days ago, and her symptoms were controlled with Haldol at that time. TRAVEL OUTSIDE OF THE [place] IN LAST 30 DAYS: No - Related Data Allergies/Adverse Reactions: phenobarbital [Phenobarbital] Allergy (Severe, Verified 12/17/18 12:07) INDUCED A SEIZURE amoxicillin trihydrate [From Augmentin] Allergy (Unknown, Verified 12/17/18 12:07) ceftriaxone sodium [From Rocephin] Allergy (Unknown, Verified 12/17/18 12:07) Potassium Clavulanate * [From Augmentin] Allergy (Unknown, Verified 12/17/18 12:07) Past Medical History - General Information source: Patient, [facility] Records - Social History Smoking Status: Unknown if Ever Smoked Cigarette use (# per day): No Chew tobacco use (# tins/day): No Smoking Education Provided: No Frequency of alcohol use: None Drug Abuse: Marijuana Family History: Reviewed & Not Pertinent Patient has suicidal ideation: No Patient has homicidal ideation: No Pulmonary Medical History: Reports: Hx Asthma Neurological Medical History: Reports: Hx Seizures - A CHILD Endocrine Medical History: Reports: Hx Hypothyroidism GI Medical History: Reports: Other - Chronic abdominal pain with vomiting Past Surgical History: Reports: Other - Upper endoscopy on 12/08/2018 - Immunizations Hx Diphtheria, Pertussis, Tetanus Vaccination: Yes Review of Systems - Review of Systems Constitutional: No symptoms reported EENT: No symptoms reported Cardiovascular: No symptoms reported Respiratory: No symptoms reported Gastrointestinal: See HPI Genitourinary: No symptoms reported Female Genitourinary: No symptoms reported Musculoskeletal: No symptoms reported Skin: No symptoms reported Hematologic/Lymphatic: No symptoms reported Neurological/Psychological: No symptoms reported Physical Exam - Vital signs Vitals: Temp Pulse Resp BP Pulse Ox 97.5 F 88 24 H 141/72 H 97 12/17/18 12:05 12/17/18 12:05 12/17/18 12:05 12/17/18 12:05 12/17/18 12:05 - General General appearance: Alert, Anxious In distress: Moderate - Patient is rolling back and forth, moaning and groaning quite loudly - HEENT Head: Normocephalic, Atraumatic Eyes: Normal Pupils: PERRL - Respiratory Respiratory status: No respiratory distress Breath sounds: Normal - Cardiovascular Rhythm: Regular Heart sounds: Normal auscultation Murmur: No - Abdominal Inspection: Morbidly Obese Bowel sounds: Normal Tenderness: Tender - Back Back: Normal - Extremities General upper extremity: Normal inspection General lower extremity: Normal inspection - Neurological Neuro grossly intact: Yes - Psychological Associated symptoms: Anxious - Skin Skin Temperature: Warm Skin Moisture: Dry Skin Color: Normal Course - Vital Signs Vital signs: Temp Pulse Resp BP Pulse Ox 98.1 F 94 15 120/57 L 99 12/17/18 17:13 12/17/18 17:13 12/17/18 17:13 12/17/18 17:13 12/17/18 17:13 - Laboratory Result Diagrams: 12/17/18 12:27 12/17/18 12:27 Laboratory results interpreted by me: 12/17/18 12/17/18 12/17/18 12:27 12:27 13:55 WBC 16.4 H RBC 5.31 H Absolute Neuts (auto) 12.9 H Seg Neutrophils % 78.4 H Glucose 124 H Urine Ketones 80 H Discharge - Discharge Clinical Impression: Cannabinoid hyperemesis syndrome Cyclic vomiting syndrome Qualifiers: Vomiting Intractability: non-intractable Nausea presence: with nausea Qualified Code(s): G43.A0 - Cyclical vomiting, not intractable Condition: Stable Disposition: HOME, SELF-CARE Additional Instructions: Cannabinoid Hyperemesis Syndrome: You most likely are suffering from cannabinoid hyperemesis syndrome with cyclic vomiting. This is a phenomena that is caused by smoking marijuana. It does not necessarily occur shortly after smoke it can continue to occur up to 1 month after you stop smoking marijuana, but it rarely goes away on its own if you do not stop smoking marijuana. Some people noticed that there abdominal discomfort and nausea improve when they take a hot shower. They also frequently feel better when they rub capsaicin cream on their abdomen. Take the medications as prescribed for nausea and vomiting. Take Benadryl 25 mg every 6 hours for the next 1 to 2 days. Drink plenty of cool clear liquids. Stop smoking marijuana. Follow-up with a local medical doctor to help manage your symptoms if they do not resolve. RETURN TO THE EMERGENCY ROOM IF ANY NEW OR WORSENING SYMPTOMS. Prescriptions: Haloperidol [Haldol 2 Mg Tablet] 2 mg PO Q6 PRN #8 tablet PRN Reason: Metoclopramide HCl [Reglan 10 mg Tablet] 1 tab PO ASDIR PRN #10 tablet PRN Reason: Referrals: MARGARITA BROWN MD [Primary Care Provider] - Follow up as needed
[2018-12-17 12:55] LABS: ABSOLUTE BASOPHILS # (AUTO) 0.1 10^3/uL (0.0-0.2); ABSOLUTE EOSINOPHILS # (AUTO) 0.4 10^3/uL (0.0-0.6); ABSOLUTE LYMPHOCYTES (AUTO) 2.3 10^3/uL (0.5-4.7); ABSOLUTE MONOCYTES (AUTO) 0.7 10^3/uL (0.1-1.4); ABSOLUTE NEUT (AUTO) 12.9 10^3/uL (1.7-8.2); BASOPHILS % (AUTO) 0.7 % (0-2); EOSINOPHILS % (AUTO) 2.3 % (0-6); HEMATOCRIT 46.1 % (36.0-47.0); HEMOGLOBIN 15.2 g/dL (12.0-15.5); LYMPHOCYTES % (AUTO) 14.1 % (13-45); MEAN CORPUSCULAR HEMOGLOBIN 28.6 pg (27.0-33.4); MEAN CORPUSCULAR VOLUME 87 fl (80-97); MONOCYTES % (AUTO) 4.5 % (3-13); PLATELET COUNT 350 10^3/uL (150-450); RED BLOOD COUNT 5.31 10^6/uL (3.72-5.28); RED CELL DISTRIBUTION WIDTH 13.4 % (11.5-14.0); SEGMENTED NEUTROPHILS % (AUTO) 78.4 % (42-78); TOTAL CELLS COUNTED % (AUTO) 100 %; WHITE BLOOD COUNT 16.4 10^3/uL (4.0-10.5)
[2018-12-17 13:00] LABS: ALBUMIN 4.3 g/dL (3.5-5.0); ALKALINE PHOSPHATASE 84 U/L (38-126); ANION GAP 10 (5-19); ASPARTATE AMINO TRANSFERASE 21 U/L (14-36); BILIRUBIN,DIRECT 0.3 mg/dL (0.0-0.4); BILIRUBIN,TOTAL 0.6 mg/dL (0.2-1.3); BLOOD UREA NITROGEN 9 mg/dL (7-20); CALCIUM 10.1 mg/dL (8.4-10.2); CARBON DIOXIDE 25 mmol/L (22-30); CHLORIDE 105 mmol/L (98-107); GLUCOSE 124 mg/dL (75-110); POTASSIUM 4.4 mmol/L (3.6-5.0); TOTAL PROTEIN 7.4 g/dL (6.3-8.2)
[2018-12-17 14:16] LABS: APPEARANCE,URINE SLIGHTLY-CLOUDY; BILIRUBIN,URINE NEGATIVE (NEGATIVE); COLOR,URINE YELLOW; GLUCOSE, URINE NEGATIVE (NEGATIVE); KETONES,URINE 80 mg/dL (NEGATIVE); LEUKOCYTE ESTERASE,URINE NEGATIVE (NEGATIVE); NITRITE,URINE NEGATIVE (NEGATIVE); PROTEIN,URINE NEGATIVE (NEGATIVE); URINE SPECIFIC GRAVITY 1.021; UROBILINOGEN,URINE NEGATIVE mg/dL (<2.0)
[2018-12-17 14:29] LABS: URINE AMPHETAMINES SCREEN NEGATIVE; URINE BARBITURATES SCREEN NEGATIVE; URINE BENZODIAZEPINES SCREEN NEGATIVE; URINE COCAINE SCREEN NEGATIVE; URINE MARIJUANA (THC) SCREEN UNCONFIRMED POSITIVE; URINE METHADONE SCREEN NEGATIVE; URINE PHENCYCLIDINE SCREEN NEGATIVE
[2018-12-17] MEDS ORDERED: DEXTROSE 5%-LACTATED RINGERS 1,000 ML IV ONE (14:41)
[2018-12-17 17:10] VITALS: BP 120/57
== END 2018-12-17 17:51 | disposition home or self-care (01) ==
LOC: ER 12:04
DX: F12.188 Cannabis abuse with other cannabis-induced disorder (principal); G43.A0 Cyclical vomiting, in migraine, not intractable; R10.9 Unspecified abdominal pain; Z79.899 Other long term (current) drug therapy; J45.909 Unspecified asthma, uncomplicated
CPT/HCPCS: 96376; 99284; 96361; 96374; 96375; 36415; 83690; 84703; 85025; 80053; 81001; 80307; J1200; J1630; J2765; J3490; J7121; J7030

== ENCOUNTER 2018-12-19 08:08 | Emergency (ER) | payer BC ==
[2018-12-19] MEDS ORDERED: NORMAL SALINE 1000 ML 1,000 ML IV ONE (08:51)
[2018-12-19] MEDS ORDERED: ONDANSETRON HCL INJ/PF 4 MG/2 ML SDV IV ONE (08:51)
[2018-12-19 09:53] LABS: ABSOLUTE MONOCYTES (AUTO) 0.3 10^3/uL (0.1-1.4); ABSOLUTE NEUT (AUTO) 10.5 10^3/uL (1.7-8.2); BASOPHILS % (AUTO) 0.2 % (0-2); EOSINOPHILS % (AUTO) 0.1 % (0-6); HEMATOCRIT 45.6 % (36.0-47.0); HEMOGLOBIN 15.3 g/dL (12.0-15.5); LYMPHOCYTES % (AUTO) 8.2 % (13-45); MEAN CORPUSCULAR HEMOGLOBIN 28.8 pg (27.0-33.4); MEAN CORPUSCULAR HGB CONC 33.6 g/dL (32.0-36.0); MEAN CORPUSCULAR VOLUME 86 fl (80-97); MONOCYTES % (AUTO) 2.8 % (3-13); PLATELET COUNT 324 10^3/uL (150-450); RED CELL DISTRIBUTION WIDTH 13.5 % (11.5-14.0); SEGMENTED NEUTROPHILS % (AUTO) 88.7 % (42-78); TOTAL CELLS COUNTED % (AUTO) 100 %; WHITE BLOOD COUNT 11.9 10^3/uL (4.0-10.5)
[2018-12-19 10:00] LABS: APPEARANCE,URINE SLIGHTLY-CLOUDY; BILIRUBIN,URINE NEGATIVE (NEGATIVE); COLOR,URINE YELLOW; GLUCOSE, URINE NEGATIVE (NEGATIVE); KETONES,URINE 80 mg/dL (NEGATIVE); LEUKOCYTE ESTERASE,URINE NEGATIVE (NEGATIVE); NITRITE,URINE NEGATIVE (NEGATIVE); PROTEIN,URINE 30 mg/dL (NEGATIVE); URINE SPECIFIC GRAVITY 1.027; UROBILINOGEN,URINE NEGATIVE mg/dL (<2.0)
[2018-12-19 10:06] LABS: ALBUMIN 4.4 g/dL (3.5-5.0); ALKALINE PHOSPHATASE 76 U/L (38-126); ANION GAP 12 (5-19); ASPARTATE AMINO TRANSFERASE 21 U/L (14-36); BILIRUBIN,DIRECT 0.2 mg/dL (0.0-0.4); BILIRUBIN,TOTAL 0.4 mg/dL (0.2-1.3); BLOOD UREA NITROGEN 11 mg/dL (7-20); CALCIUM 9.6 mg/dL (8.4-10.2); CARBON DIOXIDE 25 mmol/L (22-30); CHLORIDE 102 mmol/L (98-107); GLUCOSE 120 mg/dL (75-110); POTASSIUM 3.9 mmol/L (3.6-5.0); TOTAL PROTEIN 7.5 g/dL (6.3-8.2)
[2018-12-19] MEDS ORDERED: PROMETHAZINE HCL INJ 50 MG/1 ML VIAL IM ONE (11:07)
--- NOTE | 2018-12-19 11:12 | ER Document Report ---
ED GI/ - General Chief Complaint: Nausea/Vomiting Stated Complaint: VOMITING Time Seen by Provider: 12/19/18 10:59 Primary Care Provider: MAGDA MAXWELL MD [Primary Care Provider] - Follow up as needed Notes: 23-year-old female seen here 2 days ago and diagnosed with cannabinoid hyperemesis re-presents to the emergency department for unresolved abdominal pain. Patient states that she has had continued nausea and vomiting and left upper quadrant pain. Patient states that she had an upper endoscopy performed by Dr. Bailey on 11 days ago and she was diagnosed with gastritis. Patient is on Prilosec but has been chronically. Patient states that she has had blood streaked vomit and it is brown but patient has not had an appetite. Patient denies any joseph hematemesis or denies any hematochezia or melena. Patient denies any fevers or recent illness. No urinary symptoms or abnormal vaginal discharge. TRAVEL OUTSIDE OF THE [place] IN LAST 30 DAYS: No - Related Data Allergies/Adverse Reactions: phenobarbital [Phenobarbital] Allergy (Severe, Verified 12/17/18 12:07) INDUCED A SEIZURE amoxicillin trihydrate [From Augmentin] Allergy (Unknown, Verified 12/17/18 12:07) ceftriaxone sodium [From Rocephin] Allergy (Unknown, Verified 12/17/18 12:07) Potassium Clavulanate * [From Augmentin] Allergy (Unknown, Verified 12/17/18 12:07) Past Medical History - Social History Smoking Status: Never Smoker Frequency of alcohol use: None Drug Abuse: None Family History: Reviewed & Not Pertinent Patient has suicidal ideation: No Patient has homicidal ideation: No - Past Medical History Cardiac Medical History: Denies: Hx Coronary Artery Disease, Hx Heart Attack, Hx Hypertension Pulmonary Medical History: Reports: Hx Asthma Denies: Hx Bronchitis, Hx COPD, Hx Pneumonia Neurological Medical History: Reports: Hx Seizures - A CHILD. Denies: Hx Cerebrovascular Accident Endocrine Medical History: Reports: Hx Hypothyroidism Renal/ Medical History: Denies: Hx Peritoneal Dialysis Musculoskeletal Medical History: Denies Hx Arthritis Past Surgical History: Reports: Other - Upper endoscopy on 12/08/2018 - Immunizations Hx Diphtheria, Pertussis, Tetanus Vaccination: Yes Review of Systems - Review of Systems Constitutional: See HPI EENT: No symptoms reported Cardiovascular: No symptoms reported Respiratory: No symptoms reported Gastrointestinal: See HPI Genitourinary: No symptoms reported Female Genitourinary: See HPI Musculoskeletal: No symptoms reported Skin: No symptoms reported Hematologic/Lymphatic: No symptoms reported Neurological/Psychological: No symptoms reported Physical Exam - Vital signs Vitals: Temp Pulse Resp BP Pulse Ox 97.5 F 64 20 139/84 H 97 12/19/18 08:11 12/19/18 08:11 12/19/18 08:11 12/19/18 08:11 12/19/18 08:11 - Notes Notes: PHYSICAL EXAMINATION: Reviewed vital signs and charting by RN GENERAL: Alert, interacts well. No acute distress. HEAD: Normocephalic, atraumatic. EYES: Pupils equal and round. Extraocular movements intact. ENT: Oral mucosa moist, tongue midline. NECK: Full range of motion. Trachea midline. LUNGS: Clear to auscultation bilaterally, no wheezes, rales, or rhonchi. No respiratory distress. HEART: Regular rate and rhythm. No murmur ABDOMEN: soft, mild tenderness to palpation left upper quadrant. No distention. Bowel sounds present EXTREMITIES: Moves all 4 extremities spontaneously. No edema, No cyanosis. PSYCH: Normal affect, normal mood. SKIN: Warm, dry, normal turgor. No rashes or lesions noted. Course - Re-evaluation Re-evalutation: 12/19/18 11:10 This patient is in no acute distress and nontoxic-appearing. All lab work was within normal limits and there were no derangements. Patient states that the Haldol given to her here in the emergency department 2 days ago did not help her symptoms she states that Phenergan works. I have given her Phenergan 50 mg IM once and will reassess. Based on patient's presentation, recent history with endoscope B, benign abdominal exam I do not suspect emergent condition or surg ical abdomen. I do not suspect the patient has a small bowel obstruction as her last bowel movement was yesterday morning and she is passing gas, do not suspect mesenteric ischemia. Plan to reassess after she is medicated. 12/19/18 12:06 Patient states that she did not feel any better after getting the Phenergan and stated "I have been given morphine in the past and that seems to help me, a smal l dose like 4 mg". I initially ordered Benadryl 25 mg IV but I will treat the patient's pain with a smaller dose of morphine, 2 mg IV once. Once adequate pain control is established patient will be stable for discharge as there is no emergent condition warranting surgical evaluation or medical admission. - Vital Signs Vital signs: Temp Pulse Resp BP Pulse Ox 98.8 F 92 20 136/93 H 96 12/19/18 11:47 12/19/18 11:47 12/19/18 11:47 12/19/18 11:47 12/19/18 11:47 - Laboratory Result Diagrams: 12/19/18 09:28 12/19/18 09:28 Laboratory results interpreted by me: 12/19/18 12/19/18 12/19/18 09:28 09:28 09:28 WBC 11.9 H RBC 5.30 H Lymph % (Auto) 8.2 L [place] % (Auto) 2.8 L Absolute Neuts (auto) 10.5 H Seg Neutrophils % 88.7 H Glucose 120 H Urine Protein 30 H Urine Ketones 80 H Urine Blood SMALL H Discharge - Discharge Clinical Impression: Nausea and vomiting Qualifiers: Vomiting type: unspecified Vomiting Intractability: unspecified Qualified Code(s): R11.2 - Nausea with vomiting, unspecified Abdominal pain Qualifiers: Abdominal location: left upper quadrant Qualified Code(s): R10.12 - Left upper quadrant pain Condition: Good Disposition: HOME, SELF-CARE Instructions: Vomiting ([facility]) Additional Instructions: You have been seen in the Emergency Department (ED) for abdominal pain. Your evaluation did not identify a clear cause of your symptoms but was generally reassuring. Please follow up with your doctor as soon as possible regarding today's emergent visit and the symptoms that are bothering you. Return to the ED if your abdominal pain worsens or fails to improve, you develop bloody vomiting, bloody diarrhea, you are unable to tolerate fluids due to vomiting, fever greater than 101, or other symptoms that concern you. You have also been seen in the ED today for nausea and vomiting. Your work up today has not shown a clear cause for your symptoms. You have been prescribed phenergan; please use as prescribed as needed for your nausea. Follow up with your doctor as soon as possible regarding today's emergent visit and your symptoms of nausea. Return to the Emergency Department (ED) if you develop abdominal pain, bloody vomiting, bloody diarrhea, if you are unable to tolerate fluids due to vomiting, or if you develop other symptoms that concern you. Forms: Return to Work Referrals: MAGDA MAXWELL MD [Primary Care Provider] - Follow up as needed
[2018-12-19 11:48] VITALS: BP 136/93
[2018-12-19] MEDS ORDERED: DIPHENHYDRAMINE HCL 50 MG/ML VIAL IV ONE (12:02)
[2018-12-19] MEDS ORDERED: MORPHINE SULFATE 10 MG/ML INJ IV ONE (12:06)
== END 2018-12-19 12:38 | disposition home or self-care (01) ==
LOC: ER 08:08
DX: K29.70 Gastritis, unspecified, without bleeding (principal); Z79.899 Other long term (current) drug therapy; R10.12 Left upper quadrant pain; R11.2 Nausea with vomiting, unspecified; R63.0 Anorexia; Z88.8 Allergy status to other drugs, medicaments and biological substances; Z88.0 Allergy status to penicillin; Z88.1 Allergy status to other antibiotic agents; Z98.890 Other specified postprocedural states
CPT/HCPCS: 99284; 96372; 96361; 96374; 36415; 85025; 80053; 81001; J2270; J2550; J7030

== ENCOUNTER → 2019-01-18 | Outpatient (CLI) | payer BC ==
--- NOTE | 2019-01-18 10:25 | RADIOLOGY REPORT (SQ) ---
EXAM DESCRIPTION: NM HIDA SCAN WITH CCK COMPLETED DATE/TIME: 01/18/2019 10:16 am REASON FOR STUDY: RUQ PAIN (R10.11) R10.11 RIGHT UPPER QUADRANT PAIN COMPARISON: None. RADIONUCLIDE AND DOSE: DOSAGE RADIONUCLIDE: 5.43 millicuries Tc99m Mebrofenin. DOSAGE CCK: 5 micrograms. DOSAGE MORPHINE: Not required. The route of agent administration: Intravenous TECHNIQUE: Serial imaging right upper quadrant up to 60 minutes following injection of radionuclide. CCK injected after gallbladder visualized. LIMITATIONS: None. FINDINGS: LIVER: Normal visualization without areas of photopenia. INTRAHEPATIC BILE DUCTS: Normal size and no delay in visualization. COMMON BILE DUCT: Normal without dilatation. GALLBLADDER: Normal visualization. Calculated ejection fraction of 25%. Normal range is greater th an 35%. PHYSICAL RESPONSE: Patients presenting complaint were reproduced. OTHER: No other significant finding. IMPRESSION: 1. ABNORMAL STUDY. GALLBLADDER EJECTION FRACTION is 25% (normal range is greater than 3 5%). EVIDENCE FOR BILIARY DYSKINESIS. 2. Patient's symptoms were reproduced following CCK administration. TECHNICAL DOCUMENTATION: JOB ID: [id number] [employer]- All Rights Reserved Reading location - IP/workstation name: [email or web address]
== END ==
LOC: RAD 08:01
PROVIDERS: ATTEND Internal Medicine Gastroenterology
DX: R10.11 Right upper quadrant pain (principal)
CPT/HCPCS: 78227; J2805; A9537; Q9969

== ENCOUNTER 2020-04-07 12:56 | Emergency (ER) | payer SELFPAY ==
[2020-04-07] MEDS ORDERED: ONDANSETRON 4 MG TAB.RAPDIS PO ONE (14:03)
--- NOTE | 2020-04-07 14:07 | ER Document Report ---
ED Medical Screen (RME) - General Chief Complaint: Abdominal Pain Stated Complaint: ABDOMINAL PAIN Time Seen by Provider: 04/07/20 13:59 Mode of Arrival: Wheelchair Information source: Patient Notes: HPI; 24-year-old female with chronic abdominal pain presents to the emergency room with sudden onset of right upper quadrant dull aching pain that started early this morning. Complains of nausea with vomiting. States she took 1 Phenergan without relief. States she had endoscopy approximately a year ago which showed some inflammation. States normally takes Phenergan with relief but it did not help her symptoms today. PE: Alert and oriented x3. Lungs: Clear to auscultation without rales, rhonchi, wheezes. Heart: Regular rate rhythm without murmurs, rubs, gallops. I have greeted and performed a rapid initial assessment of this patient. A comprehensive ED assessment and evaluation of the patient, analysis of test results and completion of the medical decision making process will be conducted by additional ED providers. I have specifically instructed the patient or family members with the patient to immediately return to any nursing staff should anything change in the patient's condition or with their chief complaint. TRAVEL OUTSIDE OF THE [place] IN LAST 30 DAYS: No - Related Data Allergies/Adverse Reactions: phenobarbital [Phenobarbital] Allergy (Severe, Verified 04/07/20 13:58) INDUCED A SEIZURE amoxicillin trihydrate [From Augmentin] Allergy (Unknown, Verified 04/07/20 13:58) ceftriaxone sodium [From Rocephin] Allergy (Unknown, Verified 04/07/20 13:58) Potassium Clavulanate * [From Augmentin] Allergy (Unknown, Verified 04/07/20 13:58) Home Medications: cymbacort Past Medical History - Social History Chew tobacco use (# tins/day): No Frequency of alcohol use: None Drug Abuse: None - Past Medical History Cardiac Medical History: Denies: Hx Coronary Artery Disease, Hx Heart Attack, Hx Hypertension Pulmonary Medical History: Reports: Hx Asthma Denies: Hx Bronchitis, Hx COPD, Hx Pneumonia Neurological Medical History: Reports: Hx Seizures - A CHILD. Denies: Hx Cerebrovascular Accident Endocrine Medical History: Reports: Hx Hypothyroidism Renal/ Medical History: Denies: Hx Peritoneal Dialysis GI Medical History: Reports: Hx Gastroesophageal Reflux Disease Musculoskeltal Medical History: Denies Hx Arthritis Past Surgical History: Reports: Other - Upper endoscopy on 12/08/2018 - Immunizations Hx Diphtheria, Pertussis, Tetanus Vaccination: Yes Physical Exam - Vital signs Vitals: Temp Pulse Resp BP Pulse Ox 97.5 F 89 22 H 142/73 H 100 04/07/20 13:01 04/07/20 13:01 04/07/20 13:01 04/07/20 13:01 04/07/20 13:01 Course - Vital Signs Vital signs: Temp Pulse Resp BP Pulse Ox 97.5 F 89 22 H 142/73 H 100 04/07/20 13:01 04/07/20 13:01 04/07/20 13:01 04/07/20 13:01 04/07/20 13:01
[2020-04-07 15:01] LABS: APPEARANCE,URINE SLIGHTLY-CLOUDY; BILIRUBIN,URINE NEGATIVE (NEGATIVE); COLOR,URINE YELLOW; GLUCOSE, URINE NEGATIVE (NEGATIVE); KETONES,URINE 80 mg/dL (NEGATIVE); LEUKOCYTE ESTERASE,URINE NEGATIVE (NEGATIVE); NITRITE,URINE NEGATIVE (NEGATIVE); PROTEIN,URINE 30 mg/dL (NEGATIVE); URINE SPECIFIC GRAVITY 1.021; UROBILINOGEN,URINE NEGATIVE mg/dL (<2.0)
[2020-04-07 16:34] LABS: ABSOLUTE LYMPHOCYTES (AUTO) 1.4 10^3/uL (0.5-4.7); ABSOLUTE MONOCYTES (AUTO) 0.6 10^3/uL (0.1-1.4); ABSOLUTE NEUT (AUTO) 15.2 10^3/uL (1.7-8.2); BASOPHILS % (AUTO) 0.3 % (0-2); HEMATOCRIT 44.3 % (36.0-47.0); LYMPHOCYTES % (AUTO) 8.2 % (13-45); MEAN CORPUSCULAR HEMOGLOBIN 29.2 pg (27.0-33.4); MEAN CORPUSCULAR HGB CONC 33.9 g/dL (32.0-36.0); MEAN CORPUSCULAR VOLUME 86 fl (80-97); MONOCYTES % (AUTO) 3.8 % (3-13); PLATELET COUNT 251 10^3/uL (150-450); RED BLOOD COUNT 5.15 10^6/uL (3.72-5.28); RED CELL DISTRIBUTION WIDTH 13.4 % (11.5-14.0); SEGMENTED NEUTROPHILS % (AUTO) 87.7 % (42-78); TOTAL CELLS COUNTED % (AUTO) 100 %; WHITE BLOOD COUNT 17.3 10^3/uL (4.0-10.5)
[2020-04-07] MEDS ORDERED: PROMETHAZINE HCL INJ 25 MG/1 ML VIAL IM ONE (16:36)
[2020-04-07] MEDS ORDERED: HALOPERIDOL LACTATE INJ 5 MG/1 ML VIAL IV ONE (16:37)
[2020-04-07 16:38] LABS: ALBUMIN 4.4 g/dL (3.5-5.0); ALKALINE PHOSPHATASE 79 U/L (38-126); ANION GAP 10 (5-19); ASPARTATE AMINO TRANSFERASE 20 U/L (14-36); BILIRUBIN,DIRECT 0.1 mg/dL (0.0-0.4); BILIRUBIN,TOTAL 0.5 mg/dL (0.2-1.3); BLOOD UREA NITROGEN 8 mg/dL (7-20); CALCIUM 9.8 mg/dL (8.4-10.2); CARBON DIOXIDE 19 mmol/L (22-30); CHLORIDE 108 mmol/L (98-107); GLUCOSE 149 mg/dL (75-110); POTASSIUM 4.2 mmol/L (3.6-5.0); TOTAL PROTEIN 7.5 g/dL (6.3-8.2)
[2020-04-07] MEDS ORDERED: PANTOPRAZOLE SODIUM 40 MG VIAL IV ONE (16:39)
[2020-04-07 16:40] LABS: URINE AMPHETAMINES SCREEN NEGATIVE; URINE BARBITURATES SCREEN NEGATIVE; URINE BENZODIAZEPINES SCREEN NEGATIVE; URINE COCAINE SCREEN NEGATIVE; URINE METHADONE SCREEN NEGATIVE; URINE PHENCYCLIDINE SCREEN NEGATIVE
[2020-04-07] MEDS ORDERED: NORMAL SALINE 1000 ML 1,000 ML IV ONE (16:40)
[2020-04-07 16:41] LABS: URINE MARIJUANA (THC) SCREEN UNCONFIRMED POSITIVE
[2020-04-07] MEDS ORDERED: CAPSAICIN 0.025% CREAM 60 GM TP ONE (17:55)
[2020-04-07] MEDS ORDERED: CAPSAICIN 0.025% CREAM 60 GM ONE (18:06)
--- NOTE | 2020-04-07 19:05 | RADIOLOGY REPORT (SQ) ---
EXAM DESCRIPTION: ACUTE ABDOMEN SERIES IMAGES COMPLETED DATE/TIME: 04/07/2020 6:57 pm REASON FOR STUDY: n/v/hemetemesis COMPARISON: None. NUMBER OF VIEWS: Three views. TECHNIQUE: Frontal chest, supine abdomen and upright/decubitus abdomen radiographic images acquired. LIMITATIONS: None. FINDINGS: CHEST: Lungs clear of infiltrates. FREE AIR: None. No abnormal gas collections. BOWEL GAS PATTERN: Nonobstructive pattern. No dilated loops or air fluid levels. CALCIFICATIONS: No suspicious calcifications. HARDWARE: None in the abdomen. SOFT TISSUES: No gross mass or suggestion of organomegaly. BONES: No acute fracture. No worrisome bone lesions. OTHER: No other significant finding. IMPRESSION: NO RADIOGRAPHIC EVIDENCE FOR ACUTE ABDOMINAL DISEASE. TECHNICAL DOCUMENTATION: JOB ID: [id number] 2010 [employer]- All Rights Reserved Reading location - IP/workstation name: [email or web address]
[2020-04-07 19:42] VITALS: BP 108/63
--- NOTE | 2020-04-07 19:58 | ER Document Report ---
Entered by LEDA BLAIR SCRIBE 04/07/20 1704 Acting as scribe for:CHRISTIANO CORMIER MD ED GI/ - General Chief Complaint: Abdominal Pain Stated Complaint: ABDOMINAL PAIN Time Seen by Provider: 04/07/20 13:59 Mode of Arrival: Wheelchair Notes: This 24-year-old female patient presents to the emergency department today with complaints of chronic abdominal pain with nausea and vomiting. When reviewing [facility] records the patient was here in 2019 for a similar complaint. At that time it was reported that she was a chronic abuser of marijuana and she had been told in the past it was most likely cyclic vomiting. She denies marijuana usage now although her UDS is positive for THC. In this same chart it says "she tells me that Dr. Chahal told her that was not the problem, it was her gastritis based on endoscopy done 9 days ago. Review of the pathology report from that visit showed "chronic inactive gastritis". TRAVEL OUTSIDE OF THE [place] IN LAST 30 DAYS: No - Related Data Allergies/Adverse Reactions: phenobarbital [Phenobarbital] Allergy (Severe, Verified 04/07/20 13:58) INDUCED A SEIZURE amoxicillin trihydrate [From Augmentin] Allergy (Unknown, Verified 04/07/20 13:58) ceftriaxone sodium [From Rocephin] Allergy (Unknown, Verified 04/07/20 13:58) Potassium Clavulanate * [From Augmentin] Allergy (Unknown, Verified 04/07/20 13:58) Home Medications: cymbacort Past Medical History - General Information source: Patient - Social History Smoking Status: Never Smoker Chew tobacco use (# tins/day): No Frequency of alcohol use: None Drug Abuse: None Family History: Reviewed & Not Pertinent - Past Medical History Cardiac Medical History: Denies: Hx Coronary Artery Disease, Hx Heart Attack, Hx Hypertension Pulmonary Medical History: Reports: Hx Asthma Denies: Hx Bronchitis, Hx COPD, Hx Pneumonia Neurological Medical History: Reports: Hx Seizures - A CHILD. Denies: Hx Cerebrovascular Accident Endocrine Medical History: Reports: Hx Hypothyroidism Renal/ Medical History: Denies: Hx Peritoneal Dialysis GI Medical History: Reports: Hx Gastroesophageal Reflux Disease Musculoskeletal Medical History: Denies Hx Arthritis Past Surgical History: Reports: Other - Upper endoscopy on 12/08/2018 - Immunizations Hx Diphtheria, Pertussis, Tetanus Vaccination: Yes Physical Exam - Vital signs Vitals: Temp Pulse Resp BP Pulse Ox 97.5 F 89 22 H 142/73 H 100 04/07/20 13:01 04/07/20 13:01 04/07/20 13:01 04/07/20 13:01 04/07/20 13:01 - Notes Notes: Physical Exam: General: Alert, rolling around the bed moaning and groaning. HEENT: Normocephalic. Atraumatic. PERRL. Extraocular movements intact. Oropharynx clear. Neck: Supple. Non-tender. Respiratory: No respiratory distress. Clear and equal breath sounds bilaterally. Cardiovascular: Regular rate and rhythm. Abdominal: Morbidly obese. Diffuse tenderness with even superficial palpation across the entire abdomen, no rebound or guarding. No distension. Normal Bowel Sounds. Back: No gross abnormalities. Extremities: Moves all four extremities. Upper extremities: Normal inspection. Normal ROM. Lower extremities: Normal inspection. No edema. Normal ROM. Neurological: Normal cognition. AAOx4. Normal speech. Psychological: Normal affect. Normal Mood. Skin: Warm. Dry. Normal color. Course - Re-evaluation Re-evalutation: 04/07/20 19:50 Patient reports that she is feeling better less nausea although not completely resolved. There has been no further vomiting the past 1 to 2 hours while in the department. Patient did receive IV fluids IV Protonix , and IM Phenergan. Patient also received IV Haldol 5 mg for his cyclic vomiting syndrome due to marijuana - Vital Signs Vital signs: Temp Pulse Resp BP Pulse Ox 98.0 F 93 18 108/63 99 04/07/20 19:42 04/07/20 19:42 04/07/20 19:42 04/07/20 19:42 04/07/20 19:42 04/07/20 19:51 Vital signs stable. - Laboratory Results Result Diagrams: 04/07/20 15:40 04/07/20 15:40 Laboratory Results Interpreted: 04/07/20 04/07/20 04/07/20 14:30 15:40 15:40 WBC 17.3 H Lymph % (Auto) 8.2 L Absolute Neuts (auto) 15.2 H Seg Neutrophils % 87.7 H Chloride 108 H Carbon Dioxide 19 L Glucose 149 H Urine Protein 30 H Urine Ketones 80 H 04/07/20 19:51 Lab results show 17,000 white count chloride 108 CO2 19 and a glucose of 149 ketones noted in the urine as well as protein. Patient's white blood cell count is often of 17,000, as patient has presented to our hospital often with cyclic vomiting syndrome. Critical Laboratory Results Reviewed: No Critical Results - Radiology Results Radiology Results Interpreted: 04/07/20 19:53 Acute Abdomen Series 04/07/20 17:56 IMPRESSION: NO RADIOGRAPHIC EVIDENCE FOR ACUTE ABDOMINAL DISEASE. Acute abdominal series shows a normal radiographic evidence for acute abdominal x-ray series no obstruction no free air under the diaphragm chest x-ray clear without infiltrates. Critical Radiology Results Reviewed: No Critical Results Discharge - Discharge Clinical Impression: Cyclic vomiting syndrome, Leukocytosis, Marijuana abuse Condition: Stable Disposition: HOME, SELF-CARE Instructions: Antinausea Medication ([facility]), Antispasmodics ([facility]), Vomiting ([facility]) Prescriptions: Dicyclomine HCl [Bentyl 20 mg Tablet] 20 mg PO QID PRN 5 Days #20 tablet PRN Reason: Abdominal Cramping Omeprazole 40 mg PO DAILY #30 capsule. Promethazine HCl [Phenergan 25 mg Tablet] 1 - 2 tab PO Q6H PRN #15 tablet PRN Reason: I personally performed the services described in the documentation, reviewed and edited the documentation which was dictated to the scribe in my presence, and it accurately records my words and actions.
== END 2020-04-07 20:06 | disposition home or self-care (01) ==
LOC: ER 12:56
DX: R11.15 Cyclical vomiting syndrome unrelated to migraine (principal); F12.188 Cannabis abuse with other cannabis-induced disorder; D72.829 Elevated white blood cell count, unspecified; R10.9 Unspecified abdominal pain; G89.29 Other chronic pain; J45.909 Unspecified asthma, uncomplicated; Z79.51 Long term (current) use of inhaled steroids; Z88.8 Allergy status to other drugs, medicaments and biological substances; Z88.0 Allergy status to penicillin; Z88.1 Allergy status to other antibiotic agents; R10.817 Generalized abdominal tenderness
CPT/HCPCS: 99285; 96372; 96361; 96374; 96375; 36415; 83690; 84703; 85025; 80053; 81001; 80307; 74022; S0119; J1630; J3490; C9113; J2550; J7030